=== PATIENT | female | born 1950 ===

== ENCOUNTER 2017-12-16 23:59 | Emergency (ER) | payer OTHER ==
[~2017-12-16] VITALS: Ht 165.1 cm; Wt 68.9 kg
[2017-12-17] MEDS ORDERED: SYNTHROID50 MCG (00:16)
[2017-12-17] MEDS ORDERED: AMLODIPINE BESYL5 MG (00:17)
== END 2017-12-17 | disposition left against medical advice (07) ==
LOC: ER 23:59
DX: Z53.20 Procedure and treatment not carried out because of patient's decision for unspecified reasons (principal)